=== PATIENT | female | born 1950 | race African-American/Black ===

== ENCOUNTER 2016-06-12 07:52 | Emergency (ER) | payer OTHER ==
[~2016-06-12] VITALS: Ht 167.6 cm; Wt 81.8 kg
[2016-06-12 08:07] LABS: GLUCOSE,POINT OF CARE 82 MG/DL (70-110)
[2016-06-12] MEDS ORDERED: AMLO-512 PO (08:10)
[2016-06-12] MEDS ORDERED: METF500T4 PO (08:10)
[2016-06-12] MEDS ORDERED: LISI-662 PO (08:10)
[2016-06-12] MEDS ORDERED: ASPI-1093 PO (08:10)
[2016-06-12] MEDS ORDERED: HYDR25TA PO (08:10)
[2016-06-12] MEDS ORDERED: METO50 PO (08:10)
[2016-06-12] MEDS ORDERED: HYDROCODONE/ACETAMINOPHEN 10-325 MG TABLET PO ONE (10:45)
[2016-06-12 11:02] VITALS: BP 150/81
== END 2016-06-12 13:05 | disposition home or self-care (01) ==
LOC: EMS 07:55
DX: S83.92XA Sprain of unspecified site of left knee, initial encounter (principal); M17.12 Unilateral primary osteoarthritis, left knee; I10 Essential (primary) hypertension; E11.9 Type 2 diabetes mellitus without complications; F17.210 Nicotine dependence, cigarettes, uncomplicated; W19.XXXA Unspecified fall, initial encounter; Y93.01 Activity, walking, marching and hiking; Y92.481 Parking lot as the place of occurrence of the external cause; Y99.8 Other external cause status
CPT/HCPCS: 29505; 82962; 99284

== ENCOUNTER 2017-02-14 08:15 | Emergency (ER) | payer OTHER ==
[~2017-02-14] VITALS: Ht 167.6 cm; Wt 86.4 kg
[~2017-02-14 08:15] MED LIST: AMLO-512 PO; ASPI-1182 PO; HYDR25TA PO; LISI-662 PO; METF500T4 PO; METO50 PO
[2017-02-14 10:40] VITALS: BP 143/79
[2017-02-14] MEDS ORDERED: LIDOCAINE HCL 5% TRANSDERMAL PATCH TD ONE (10:45)
[2017-02-14] MEDS ORDERED: ACETAMINOPHEN 500 MG TABLET PO ONE (10:45)
[2017-02-14] MEDS ORDERED: METHOCARBAMOL 500 MG TABLET PO ONE (10:45)
[2017-02-14 11:03] LABS: GLUCOSE,POINT OF CARE 103 MG/DL (70-110)
== END 2017-02-14 11:39 | disposition home or self-care (01) ==
LOC: EMS 08:17
DX: M54.2 Cervicalgia (principal); M54.5 Low back pain; R51 Headache; M25.552 Pain in left hip; E11.9 Type 2 diabetes mellitus without complications; I10 Essential (primary) hypertension; Z79.82 Long term (current) use of aspirin; Z79.4 Long term (current) use of insulin; Z79.899 Other long term (current) drug therapy; V49.59XA Passenger injured in collision with other motor vehicles in traffic accident, initial encounter; Y93.89 Activity, other specified; Y92.89 Other specified places as the place of occurrence of the external cause; Y99.8 Other external cause status
CPT/HCPCS: 82962; 99284